=== PATIENT | male | born 1960 | race Caucasian/White ===

== ENCOUNTER 2017-07-17 11:17 | Inpatient (IN) | payer OTHER ==
[2017-07-17 11:44] VITALS: BMI 24.2
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
[2017-07-17] MEDS ORDERED: LOPERAMIDE HCL 2 MG CAPSULE PO PRN (12:21)
[2017-07-17] MEDS ORDERED: chlordiazePOXIDE HCL 25 MG CAPSULE PO PRN (12:21)
[2017-07-17] MEDS ORDERED: IBUPROFEN 400 MG TABLET (FP) PO PRN (12:21)
[2017-07-17] MEDS ORDERED: ACETAMINOPHEN 325 MG TABLET (FP) PO PRN (12:21)
[2017-07-17] MEDS ORDERED: MAGNESIUM CITRATE 300 ML BOTTLE PO PRN (12:21)
[2017-07-17] MEDS ORDERED: MAG HYDROX/AL HYDROX/SIMETH 30 ML UNIT-DOSE CUP PO PRN (12:21)
[2017-07-17] MEDS ORDERED: MAGNESIUM HYDROX 2400MG/30ML ORAL SUSPENSION 30 ML CUP PO PRN (12:21)
[2017-07-17] MEDS ORDERED: guaiFENesin/D-METHORPHAN HB 10 ML UNIT-DOSE CUPS PO PRN (12:21)
[2017-07-17] MEDS ORDERED: hydrOXYzine PAMOATE 25 MG CAPSULE (FP) PO PRN (12:21)
[2017-07-17] MEDS ORDERED: MENTHOL/PHENOL 1 EACH UD MM PRN (12:21)
[2017-07-17] MEDS ORDERED: P-EPHED 60MG/TRIPROLIDI 2.5MG TABLET PO PRN (12:21)
[2017-07-17] MEDS ORDERED: ALBUTEROL SO4 18 GM HFA INHALER IH PRN (12:24)
[2017-07-17] MEDS ORDERED: chlordiazePOXIDE HCL 25 MG CAPSULE PO ONE (12:45)
[2017-07-17] MEDS ORDERED: METHADONE HCL 10 MG TABLET (FOR DETOX USE ONLY) PO ONE ×2 (12:45→23:00)
[2017-07-17] MEDS: chlordiazePOXIDE HCL 25 MG CAPSULE PO SCH ×2 (17:23→22:06)
[2017-07-17 18:55] LABS: URINE APPEARANCE CLEAR; URINE BILIRUBIN NEGATIVE (NEGATIVE); URINE BLOOD NEGATIVE (NEGATIVE); URINE COLOR LTYELLOW; URINE GLUCOSE (UA) NEGATIVE (NEGATIVE); URINE KETONE NEGATIVE (NEGATIVE); URINE LEUK ESTERASE NEGATIVE (NEGATIVE); URINE NITRITE NEGATIVE (NEGATIVE); URINE PROTEIN NEGATIVE (NEGATIVE); URINE UROBILINOGEN NEGATIVE mg/dL (0.2-1.0)
[2017-07-17] MEDS: THIAMINE HCL 100 MG TABLET (FP) PO SCH (22:05)
[2017-07-17] MEDS: RALTEGRAVIR POTASSIUM 400 MG TAB PO SCH (22:05)
--- NOTE | 2017-07-17 22:47 | EKG ---
Test Reason : Blood Pressure : / mmHG Vent. Rate : 058 BPM Atrial Rate : 058 BPM P-R Int : 182 ms QRS Dur : 090 ms QT Int : 410 ms P-R-T Axes : 051 089 050 degrees QTc Int : 402 ms SINUS BRADYCARDIA OTHERWISE NORMAL ECG NO PREVIOUS ECGS AVAILABLE Confirmed by MD BURT, TOPHER ([id number]) on 07/17/2017 10:47:26 PM Referred By: Confirmed By:TOPHER DALLAS MD
[2017-07-18] MEDS: chlordiazePOXIDE HCL 25 MG CAPSULE PO SCH ×4 (06:12→22:31)
[2017-07-18 09:52] LABS: HEMATOCRIT 38.8 % (35.4-49); HEMOGLOBIN 12.5 GM/dL (11.7-16.9); MCH 30.3 pg (25.7-33.7); MCHC 32.3 g/dl (32.0-35.9); MEAN CELL VOLUME 93.9 fl (80-96); MEAN PLT VOLUME 9.3 fl (7.5-11.1); PLATELET COUNT 136 K/MM3 (134-434); RBC 4.14 M/mm3 (4.00-5.60); RDW 14.4 % (11.9-15.9)
[2017-07-18] MEDS ORDERED: METHADONE HCL 10 MG TABLET (FOR DETOX USE ONLY) PO SCH (10:00)
[2017-07-18 10:02] LABS: ANION GAP 4 (8-16); BILIRUBIN,TOTAL 0.4 mg/dL (0.2-1.0); BLOOD UREA NITROGEN 10 mg/dL (7-18); CALCIUM 8.2 mg/dL (8.5-10.1); CHLORIDE 107 mmol/L (98-107); CO2 31 mmol/L (21-32); CREATININE 0.9 mg/dL (0.7-1.3); GLUCOSE,RANDOM 82 mg/dL (74-106); POTASSIUM 3.9 mmol/L (3.5-5.1); SGOT/AST 38 U/L (15-37); SGPT/ALT 29 U/L (12-78); SODIUM 142 mmol/L (136-145); TOT PROT 6.9 g/dl (6.4-8.2)
[2017-07-18 10:03] LABS: ALK PHOS 134 U/L (45-117)
[2017-07-18] MEDS: PRENATAL VITAMINS W/ FOLIC ACID TABLET (FP) PO SCH (10:40)
[2017-07-18] MEDS: EMTRICITABINE/TENOFOV ALAFENAM (DESCOVY) TABLET PO SCH (10:40)
[2017-07-18] MEDS: RALTEGRAVIR POTASSIUM 400 MG TAB PO SCH ×2 (10:40→22:30)
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
--- NOTE | 2017-07-18 11:47 | PN ---
[facility] CIWA - CIWA Score Nausea/Vomitin-No Nausea/No Vomiting Muscle Tremors: 3 Anxiety: 3 Agitation: 2 Paroxysmal Sweats: 1-Minimal Palms Moist Orientation: 0-Oriented Tacttile Disturbances: 0-None Auditory Disturbances: 0-None Visual Disturbances: 0-None Headache: 0-None Present CIWA-Ar Total Score: 9 BHS COWS - Scale Resting Pulse: 0= TN 80 or Below Sweatin= Chills/Flushing Restless Observation: 1= Difficult to Sit Still Pupil Size: 1= Pupils >than Normal Bone or Joint Aches: 1= Mild Discomfort Runny Nose/ Eye Tearin= Nasal Congestion GI Upset > 30mins: 1= Stomach Cramp Tremor Observation of Outstretched Hands: 1= Tremor [place], Not Seen Yawning Observation: 0= None Anxiety or Irritability: 2=Irritable/Anxious Goose Flesh Skin: 0=Smooth Skin COWS Score: 9 S Progress Note (SOAP) Subjective: joint ache sweat tremor restlessness anxiety Objective: 07/18/17 11:49 Vital Signs Temperature 97.9 F 07/18/17 10:00 Pulse Rate 67 07/18/17 10:00 Respiratory Rate 18 07/18/17 10:00 Blood Pressure 110/57 07/18/17 10:00 O2 Sat by Pulse Oximetry (%) Laboratory Last Values WBC 4.0 K/mm3 (4.0-10.0) 07/18/17 07:20 RBC 4.14 M/mm3 (4.00-5.60) 07/18/17 07:20 Hgb 12.5 GM/dL (11.7-16.9) 07/18/17 07:20 Hct 38.8 % (35.4-49) 07/18/17 07:20 MCV 93.9 fl (80-96) 07/18/17 07:20 MCH 30.3 pg (25.7-33.7) 07/18/17 07:20 MCHC 32.3 g/dl (32.0-35.9) 07/18/17 07:20 RDW 14.4 % (11.9-15.9) 07/18/17 07:20 Plt Count 136 K/MM3 (134-434) 07/18/17 07:20 MPV 9.3 fl (7.5-11.1) 07/18/17 07:20 Sodium 142 mmol/L (136-145) 07/18/17 07:20 Potassium 3.9 mmol/L (3.5-5.1) 07/18/17 07:20 Chloride 107 mmol/L (98-107) 07/18/17 07:20 Carbon Dioxide 31 mmol/L (21-32) 07/18/17 07:20 Anion Gap 4 (8-16) L 07/18/17 07:20 BUN 10 mg/dL (7-18) 07/18/17 07:20 Creatinine 0.9 mg/dL (0.7-1.3) 07/18/17 07:20 Creat Clearance w eGFR > 60 (>60) 07/18/17 07:20 Random Glucose 82 mg/dL (74-106) 07/18/17 07:20 Calcium 8.2 mg/dL (8.5-10.1) L 07/18/17 07:20 Total Bilirubin 0.4 mg/dL (0.2-1.0) 07/18/17 07:20 AST 38 U/L (15-37) H 07/18/17 07:20 ALT 29 U/L (12-78) 07/18/17 07:20 Alkaline Phosphatase 134 U/L (45-117) H 07/18/17 07:20 Total Protein 6.9 g/dl (6.4-8.2) 07/18/17 07:20 Albumin 3.0 g/dl (3.4-5.0) L 07/18/17 07:20 Urine Color Ltyellow 07/17/17 13:36 Urine Appearance Clear 07/17/17 13:36 Urine pH 5.0 (5.0-8.0) 07/17/17 13:36 Ur Specific [place] 1.015 (1.001-1.035) 07/17/17 13:36 Urine Protein Negative (NEGATIVE) 07/17/17 13:36 Urine Glucose (UA) Negative (NEGATIVE) 07/17/17 13:36 Urine Ketones Negative (NEGATIVE) 07/17/17 13:36 Urine Blood Negative (NEGATIVE) 07/17/17 13:36 Urine Nitrite Negative (NEGATIVE) 07/17/17 13:36 Urine Bilirubin Negative (NEGATIVE) 07/17/17 13:36 Urine Urobilinogen Negative mg/dL (0.2-1.0) 07/17/17 13:36 Ur Leukocyte Esterase Negative (NEGATIVE) 07/17/17 13:36 RPR Titer Nonreactive (NONREACTIVE) 07/18/17 07:20 lab noted Assessment: 07/18/17 11:49 withdrawal sx Plan: continue detox
[2017-07-18] MEDS: SERTRALINE HCL 50 MG TABLET (FP) PO SCH (12:33)
[2017-07-18] MEDS: THIAMINE HCL 100 MG TABLET (FP) PO SCH (22:30)
[2017-07-18] MEDS: QUEtiapine FUMARATE 100 MG TABLET (FP) PO SCH (22:30)
[2017-07-19] MEDS: chlordiazePOXIDE HCL 25 MG CAPSULE PO SCH ×2 (07:18→11:04)
[2017-07-19] MEDS: EMTRICITABINE/TENOFOV ALAFENAM (DESCOVY) TABLET PO SCH (10:05)
[2017-07-19] MEDS: PRENATAL VITAMINS W/ FOLIC ACID TABLET (FP) PO SCH (10:05)
[2017-07-19] MEDS: RALTEGRAVIR POTASSIUM 400 MG TAB PO SCH ×2 (10:06→22:03)
[2017-07-19] MEDS: SERTRALINE HCL 50 MG TABLET (FP) PO SCH (10:06)
[2017-07-19] MEDS: METHADONE HCL 5 MG TABLET (FOR DETOX USE ONLY) PO SCH (10:06)
--- NOTE | 2017-07-19 11:31 | PN ---
[facility] CIWA - CIWA Score Nausea/Vomitin Muscle Tremors: 3 Anxiety: 3 Agitation: 2 Paroxysmal Sweats: 1-Minimal Palms Moist Orientation: 0-Oriented Tacttile Disturbances: 1-Very Mild Itch/Numbness Auditory Disturbances: 1-Very Mild Visual Disturbances: 0-None Headache: 2-Mild CIWA-Ar Total Score: 16 BHS COWS - Scale Resting Pulse: 0= [place] 80 or Below Sweatin= Chills/Flushing Restless Observation: 3= Extraneous Movement Pupil Size: 1= Pupils >than Normal Bone or Joint Aches: 2= Severe Diffuse Aches Runny Nose/ Eye Tearin= Runny Nose/Eyes GI Upset > 30mins: 2= Nausea/Diarrhea Tremor Observation of Outstretched Hands: 2= Slight Tremor Visible Yawning Observation: 1= 1-2x During Session Anxiety or Irritability: 2=Irritable/Anxious Goose Flesh Skin: 0=Smooth Skin COWS Score: 16 [facility] Progress Note (SOAP) Subjective: ALERT,IRRITABLE,ANXIOUS,INTERRUPTED SLEEP,PAIN IN THE BODY AND BACK Objective: Vital Signs Temperature 98.1 F 07/19/17 11:08 Pulse Rate 76 07/19/17 11:08 Respiratory Rate 16 07/19/17 11:08 Blood Pressure 114/67 07/19/17 11:08 O2 Sat by Pulse Oximetry (%) EKG SINUS BRADYCARDIA 58/MIN, PROLONG QTNO CHEST PAIN,NO SOB,NO DIZZINESS Laboratory Last Values WBC 4.0 K/mm3 (4.0-10.0) 07/18/17 07:20 RBC 4.14 M/mm3 (4.00-5.60) 07/18/17 07:20 Hgb 12.5 GM/dL (11.7-16.9) 07/18/17 07:20 Hct 38.8 % (35.4-49) 07/18/17 07:20 MCV 93.9 fl (80-96) 07/18/17 07:20 MCH 30.3 pg (25.7-33.7) 07/18/17 07:20 MCHC 32.3 g/dl (32.0-35.9) 07/18/17 07:20 RDW 14.4 % (11.9-15.9) 07/18/17 07:20 Plt Count 136 K/MM3 (134-434) 07/18/17 07:20 MPV 9.3 fl (7.5-11.1) 07/18/17 07:20 Sodium 142 mmol/L (136-145) 07/18/17 07:20 Potassium 3.9 mmol/L (3.5-5.1) 07/18/17 07:20 Chloride 107 mmol/L (98-107) 07/18/17 07:20 Carbon Dioxide 31 mmol/L (21-32) 07/18/17 07:20 Anion Gap 4 (8-16) L 07/18/17 07:20 BUN 10 mg/dL (7-18) 07/18/17 07:20 Creatinine 0.9 mg/dL (0.7-1.3) 07/18/17 07:20 Creat Clearance w eGFR > 60 (>60) 07/18/17 07:20 Random Glucose 82 mg/dL (74-106) 07/18/17 07:20 Calcium 8.2 mg/dL (8.5-10.1) L 07/18/17 07:20 Total Bilirubin 0.4 mg/dL (0.2-1.0) 07/18/17 07:20 AST 38 U/L (15-37) H 07/18/17 07:20 ALT 29 U/L (12-78) 07/18/17 07:20 Alkaline Phosphatase 134 U/L (45-117) H 07/18/17 07:20 Total Protein 6.9 g/dl (6.4-8.2) 07/18/17 07:20 Albumin 3.0 g/dl (3.4-5.0) L 07/18/17 07:20 Urine Color Ltyellow 07/17/17 13:36 Urine Appearance Clear 07/17/17 13:36 Urine pH 5.0 (5.0-8.0) 07/17/17 13:36 Ur Specific [place] 1.015 (1.001-1.035) 07/17/17 13:36 Urine Protein Negative (NEGATIVE) 07/17/17 13:36 Urine Glucose (UA) Negative (NEGATIVE) 07/17/17 13:36 Urine Ketones Negative (NEGATIVE) 07/17/17 13:36 Urine Blood Negative (NEGATIVE) 07/17/17 13:36 Urine Nitrite Negative (NEGATIVE) 07/17/17 13:36 Urine Bilirubin Negative (NEGATIVE) 07/17/17 13:36 Urine Urobilinogen Negative mg/dL (0.2-1.0) 07/17/17 13:36 Ur Leukocyte Esterase Negative (NEGATIVE) 07/17/17 13:36 RPR Titer Nonreactive (NONREACTIVE) 07/18/17 07:20 Assessment: 07/19/17 11:31 WITHDRAWAL SYMPTOM Plan: CONTINUE DETOX,ENCOURAGE ORAL FLUID,ENSURE PLUS 120 MLS PO BID, BLOOD FOR AMMONIA LEVEL IN AM
[2017-07-19] MEDS: chlordiazePOXIDE 5 MG CAPSULE PO SCH ×2 (18:24→22:03)
[2017-07-19] MEDS: QUEtiapine FUMARATE 100 MG TABLET (FP) PO SCH (22:03)
[2017-07-19] MEDS: THIAMINE HCL 100 MG TABLET (FP) PO SCH (22:03)
[2017-07-20] MEDS: chlordiazePOXIDE 5 MG CAPSULE PO SCH ×2 (07:33→10:08)
[2017-07-20] MEDS: EMTRICITABINE/TENOFOV ALAFENAM (DESCOVY) TABLET PO SCH (10:08)
[2017-07-20] MEDS: PRENATAL VITAMINS W/ FOLIC ACID TABLET (FP) PO SCH (10:08)
[2017-07-20] MEDS: METHADONE HCL 5 MG TABLET (FOR DETOX USE ONLY) PO SCH (10:08)
[2017-07-20] MEDS: SERTRALINE HCL 50 MG TABLET (FP) PO SCH (10:08)
[2017-07-20] MEDS: RALTEGRAVIR POTASSIUM 400 MG TAB PO SCH ×2 (10:08→22:11)
--- NOTE | 2017-07-20 10:35 | PN ---
[facility] CIWA - CIWA Score Nausea/Vomitin Muscle Tremors: 3 Anxiety: 3 Agitation: 3 Paroxysmal Sweats: 1-Minimal Palms Moist Orientation: 0-Oriented Tacttile Disturbances: 1-Very Mild Itch/Numbness Auditory Disturbances: 1-Very Mild Visual Disturbances: 0-None Headache: 2-Mild CIWA-Ar Total Score: 17 BHS COWS - Scale Resting Pulse: 1= [place] 81-100 Sweatin= Chills/Flushing Restless Observation: 3= Extraneous Movement Pupil Size: 1= Pupils >than Normal Bone or Joint Aches: 2= Severe Diffuse Aches Runny Nose/ Eye Tearin= Runny Nose/Eyes GI Upset > 30mins: 2= Nausea/Diarrhea Tremor Observation of Outstretched Hands: 2= Slight Tremor Visible Yawning Observation: 1= 1-2x During Session Anxiety or Irritability: 2=Irritable/Anxious Goose Flesh Skin: 0=Smooth Skin COWS Score: 17 [facility] Progress Note (SOAP) Subjective: ALERT,IRRITABLE,ANXIOUS,INTERRUPTED SLEEP,PAIN IN THE BODY,TREMOR Objective: 07/20/17 10:31 Vital Signs Temperature 97.9 F 07/20/17 09:59 Pulse Rate 82 07/20/17 09:59 Respiratory Rate 16 07/20/17 09:59 Blood Pressure 126/51 07/20/17 09:59 O2 Sat by Pulse Oximetry (%) Laboratory Last Values WBC 4.0 K/mm3 (4.0-10.0) 07/18/17 07:20 RBC 4.14 M/mm3 (4.00-5.60) 07/18/17 07:20 Hgb 12.5 GM/dL (11.7-16.9) 07/18/17 07:20 Hct 38.8 % (35.4-49) 07/18/17 07:20 MCV 93.9 fl (80-96) 07/18/17 07:20 MCH 30.3 pg (25.7-33.7) 07/18/17 07:20 MCHC 32.3 g/dl (32.0-35.9) 07/18/17 07:20 RDW 14.4 % (11.9-15.9) 07/18/17 07:20 Plt Count 136 K/MM3 (134-434) 07/18/17 07:20 MPV 9.3 fl (7.5-11.1) 07/18/17 07:20 Sodium 142 mmol/L (136-145) 07/18/17 07:20 Potassium 3.9 mmol/L (3.5-5.1) 07/18/17 07:20 Chloride 107 mmol/L (98-107) 07/18/17 07:20 Carbon Dioxide 31 mmol/L (21-32) 07/18/17 07:20 Anion Gap 4 (8-16) L 07/18/17 07:20 BUN 10 mg/dL (7-18) 07/18/17 07:20 Creatinine 0.9 mg/dL (0.7-1.3) 07/18/17 07:20 Creat Clearance w eGFR > 60 (>60) 07/18/17 07:20 Random Glucose 82 mg/dL (74-106) 07/18/17 07:20 Calcium 8.2 mg/dL (8.5-10.1) L 07/18/17 07:20 Total Bilirubin 0.4 mg/dL (0.2-1.0) 07/18/17 07:20 AST 38 U/L (15-37) H 07/18/17 07:20 ALT 29 U/L (12-78) 07/18/17 07:20 Alkaline Phosphatase 134 U/L (45-117) H 07/18/17 07:20 Ammonia 39.11 umol/L (11-32) H 07/20/17 07:30 Total Protein 6.9 g/dl (6.4-8.2) 07/18/17 07:20 Albumin 3.0 g/dl (3.4-5.0) L 07/18/17 07:20 Urine Color Ltyellow 07/17/17 13:36 Urine Appearance Clear 07/17/17 13:36 Urine pH 5.0 (5.0-8.0) 07/17/17 13:36 Ur Specific [place] 1.015 (1.001-1.035) 07/17/17 13:36 Urine Protein Negative (NEGATIVE) 07/17/17 13:36 Urine Glucose (UA) Negative (NEGATIVE) 07/17/17 13:36 Urine Ketones Negative (NEGATIVE) 07/17/17 13:36 Urine Blood Negative (NEGATIVE) 07/17/17 13:36 Urine Nitrite Negative (NEGATIVE) 07/17/17 13:36 Urine Bilirubin Negative (NEGATIVE) 07/17/17 13:36 Urine Urobilinogen Negative mg/dL (0.2-1.0) 07/17/17 13:36 Ur Leukocyte Esterase Negative (NEGATIVE) 07/17/17 13:36 RPR Titer Nonreactive (NONREACTIVE) 07/18/17 07:20 AMMONIA LEVEL IS 39.11 07/20/17 10:35 EKG SINUS BRDYCARDIA RATE 58/MIN NO CHEST PAIN,NO SOB,NO DIZZINESS Laboratory Last Values WBC 4.0 K/mm3 (4.0-10.0) 07/18/17 07:20 RBC 4.14 M/mm3 (4.00-5.60) 07/18/17 07:20 Hgb 12.5 GM/dL (11.7-16.9) 07/18/17 07:20 Hct 38.8 % (35.4-49) 07/18/17 07:20 MCV 93.9 fl (80-96) 07/18/17 07:20 MCH 30.3 pg (25.7-33.7) 07/18/17 07:20 MCHC 32.3 g/dl (32.0-35.9) 07/18/17 07:20 RDW 14.4 % (11.9-15.9) 07/18/17 07:20 Plt Count 136 K/MM3 (134-434) 07/18/17 07:20 MPV 9.3 fl (7.5-11.1) 07/18/17 07:20 Sodium 142 mmol/L (136-145) 07/18/17 07:20 Potassium 3.9 mmol/L (3.5-5.1) 07/18/17 07:20 Chloride 107 mmol/L (98-107) 07/18/17 07:20 Carbon Dioxide 31 mmol/L (21-32) 07/18/17 07:20 Anion Gap 4 (8-16) L 07/18/17 07:20 BUN 10 mg/dL (7-18) 07/18/17 07:20 Creatinine 0.9 mg/dL (0.7-1.3) 07/18/17 07:20 Creat Clearance w eGFR > 60 (>60) 07/18/17 07:20 Random Glucose 82 mg/dL (74-106) 07/18/17 07:20 Calcium 8.2 mg/dL (8.5-10.1) L 07/18/17 07:20 Total Bilirubin 0.4 mg/dL (0.2-1.0) 07/18/17 07:20 AST 38 U/L (15-37) H 07/18/17 07:20 ALT 29 U/L (12-78) 07/18/17 07:20 Alkaline Phosphatase 134 U/L (45-117) H 07/18/17 07:20 Ammonia 39.11 umol/L (11-32) H 07/20/17 07:30 Total Protein 6.9 g/dl (6.4-8.2) 07/18/17 07:20 Albumin 3.0 g/dl (3.4-5.0) L 07/18/17 07:20 Urine Color Ltyellow 07/17/17 13:36 Urine Appearance Clear 07/17/17 13:36 Urine pH 5.0 (5.0-8.0) 07/17/17 13:36 Ur Specific [place] 1.015 (1.001-1.035) 07/17/17 13:36 Urine Protein Negative (NEGATIVE) 07/17/17 13:36 Urine Glucose (UA) Negative (NEGATIVE) 07/17/17 13:36 Urine Ketones Negative (NEGATIVE) 07/17/17 13:36 Urine Blood Negative (NEGATIVE) 07/17/17 13:36 Urine Nitrite Negative (NEGATIVE) 07/17/17 13:36 Urine Bilirubin Negative (NEGATIVE) 07/17/17 13:36 Urine Urobilinogen Negative mg/dL (0.2-1.0) 07/17/17 13:36 Ur Leukocyte Esterase Negative (NEGATIVE) 07/17/17 13:36 RPR Titer Nonreactive (NONREACTIVE) 07/18/17 07:20 Assessment: 07/20/17 10:33 WITHDRAWAL SYMPTOM Plan: CONTINUE DETOX,LACTULOSE 20 GRAMS PO BID,AMMONIA IS 39.9
[2017-07-20] MEDS: LACTULOSE 20 GM/30 ML UDC (FOR ORAL USE ONLY) PO SCH ×2 (10:43→22:11)
[2017-07-20] MEDS: chlordiazePOXIDE HCL 10 MG CAPSULE PO SCH ×2 (18:05→22:11)
[2017-07-20] MEDS: QUEtiapine FUMARATE 100 MG TABLET (FP) PO SCH (22:11)
[2017-07-20] MEDS: THIAMINE HCL 100 MG TABLET (FP) PO SCH (22:11)
[2017-07-21] MEDS: chlordiazePOXIDE HCL 10 MG CAPSULE PO SCH ×2 (05:50→10:08)
[2017-07-21] MEDS ORDERED: METHADONE HCL 10 MG TABLET (FOR DETOX USE ONLY) PO SCH (10:00)
[2017-07-21] MEDS: RALTEGRAVIR POTASSIUM 400 MG TAB PO SCH ×2 (10:10→22:07)
[2017-07-21] MEDS: LACTULOSE 20 GM/30 ML UDC (FOR ORAL USE ONLY) PO SCH ×2 (10:10→22:07)
[2017-07-21] MEDS: PRENATAL VITAMINS W/ FOLIC ACID TABLET (FP) PO SCH (10:10)
[2017-07-21] MEDS: EMTRICITABINE/TENOFOV ALAFENAM (DESCOVY) TABLET PO SCH (10:10)
[2017-07-21] MEDS: SERTRALINE HCL 50 MG TABLET (FP) PO SCH (10:10)
--- NOTE | 2017-07-21 11:06 | PN ---
S Progress Note (SOAP) Subjective: ALERT,INTERRUPTED SLEEP Objective: 07/21/17 11:04 Vital Signs Temperature 97.9 F 07/21/17 09:52 Pulse Rate 79 07/21/17 09:52 Respiratory Rate 18 07/21/17 09:52 Blood Pressure 109/69 07/21/17 09:52 O2 Sat by Pulse Oximetry (%) Assessment: 07/21/17 11:04 WITHDRAWAL SYMPTOM Plan: CONTINUE DETOX,DISCHARGE IN AM,ON LACTULOSE 20 GRAMS PO BID FOR ELEVATION OF AMMONIA LEVEL
[2017-07-21] MEDS: THIAMINE HCL 100 MG TABLET (FP) PO SCH (22:07)
[2017-07-21] MEDS: QUEtiapine FUMARATE 100 MG TABLET (FP) PO SCH (22:07)
[2017-07-22] MEDS ORDERED: METHADONE HCL 5 MG TABLET (FOR DETOX USE ONLY) PO SCH (06:00)
--- NOTE | 2017-07-22 08:13 | DS ---
[facility] Detox Discharge Summary Admission Date: 07/17/17 Discharge Date: 07/22/17 - History Present History: Alcohol Dependence, Cannabis Dependence, Cocaine Dependence, Opioid Dependence Additional Comments: follow up with after care program as arrangement Pertinent Past History: asthma hepatitis c hiv schizophrenia - Physical Exam Results Vital Signs: Vital Signs Temperature 97.9 F 07/22/17 06:00 Pulse Rate 94 H 07/22/17 06:00 Respiratory Rate 18 07/22/17 06:00 Blood Pressure 113/72 07/22/17 06:00 O2 Sat by Pulse Oximetry (%) Pertinent Admission Physical Exam Findings: withdrawal symptom and finding - Treatment Hospital Course: Detox Protocol Followed, Detoxed Safely, Responded well, Discharged Condition Good, Rehab Referral Accepted Patient has Accepted [facility] Referral [facility] - Medication Discharge Medications: Ambulatory Orders Albuterol Sulfate Inhaler - [Ventolin Hfa Inhaler -] 2 inh PO Q4H PRN 07/17/17 Emtricitabine/Tenofov Alafenam [Descovy 200-25 mg Tablet (Nf)] 1 each PO DAILY 07/17/17 Raltegravir [Isentress -] 400 mg PO BID 07/17/17 Hydroxyzine Pamoate 25 mg PO TID PRN #90 capsule 07/18/17 Quetiapine Fumarate [Seroquel] 100 mg PO HS #30 tablet 07/18/17 Sertraline HCl [Zoloft -] 50 mg PO DAILY #30 tablet 07/18/17 - Diagnosis (1) Opioid dependence with withdrawal Current Visit: Yes Status: Acute (2) Alcohol dependence with uncomplicated withdrawal Current Visit: Yes Status: Acute (3) Asthma Current Visit: Yes Status: Acute Qualifiers: Asthma severity: mild Asthma persistence: intermittent Asthma complication type: uncomplicated Qualified Code(s): J45.20 - Mild intermittent asthma, uncomplicated (4) Cannabis dependence Current Visit: Yes Status: Acute (5) Cocaine dependence Current Visit: Yes Status: Acute Qualifiers: Substance use status: in withdrawal Qualified Code(s): F14.23 - Cocaine dependence with withdrawal (6) HIV (human immunodeficiency virus infection) Current Visit: Yes Status: Chronic (7) Hepatitis C Current Visit: Yes Status: Chronic Qualifiers: Viral hepatitis chronicity: chronic Hepatic coma status: without hepatic coma Qualified Code(s): B18.2 - Chronic viral hepatitis C (8) Nicotine dependence Current Visit: Yes Status: Chronic (9) Substance-induced sleep disorder Current Visit: Yes Status: Acute (10) Schizophrenia Current Visit: Yes Status: Chronic (11) Increased ammonia level Current Visit: Yes Status: Acute - AMA Did Patient Leave Against Medical Advice: No
[2017-07-22 09:26] VITALS: BP 123/80; PULSE 71; TEMP 98.7
[2017-07-22] MEDS: RALTEGRAVIR POTASSIUM 400 MG TAB PO SCH (10:44)
[2017-07-22] MEDS: PRENATAL VITAMINS W/ FOLIC ACID TABLET (FP) PO SCH (10:44)
[2017-07-22] MEDS: EMTRICITABINE/TENOFOV ALAFENAM (DESCOVY) TABLET PO SCH (10:44)
[2017-07-22] MEDS: SERTRALINE HCL 50 MG TABLET (FP) PO SCH (10:44)
[2017-07-22] MEDS: LACTULOSE 20 GM/30 ML UDC (FOR ORAL USE ONLY) PO SCH (10:44)
== END 2017-07-22 14:01 | disposition home or self-care (01) | DRG 773 ==
LOC: YASAS 11:17 → Y6N 12:14
PROVIDERS: ADMIT Internal Medicine; ATTEND Internal Medicine
PROC: HZ2ZZZZ Detoxification Services for Substance Abuse Treatment (ICD-10-PCS; principal; 2017-07-17)
DX: F11.23 Opioid dependence with withdrawal (principal); F10.230 Alcohol dependence with withdrawal, uncomplicated; F14.20 Cocaine dependence, uncomplicated; F12.20 Cannabis dependence, uncomplicated; F17.210 Nicotine dependence, cigarettes, uncomplicated; F19.282 Other psychoactive substance dependence with psychoactive substance-induced sleep disorder; F20.0 Paranoid schizophrenia; Z21 Asymptomatic human immunodeficiency virus [HIV] infection status; J45.20 Mild intermittent asthma, uncomplicated; B18.2 Chronic viral hepatitis C; E72.20 Disorder of urea cycle metabolism, unspecified; Z87.438 Personal history of other diseases of male genital organs; Z91.5 Personal history of self-harm
CPT/HCPCS: 36415; 80053; 81003; 82140; 85027; 86593; 93005; 93010

== ENCOUNTER 2017-07-22 14:28 | Inpatient (IN) | payer OTHER ==
[2017-07-22] MEDS ORDERED: hydrOXYzine PAMOATE 25 MG CAPSULE (FP) PO PRN (14:50)
--- NOTE | 2017-07-22 15:22 | HP ---
[facility] Assess/Revision - Admission History Admitted to Rehab from: [facility] Date of Admission to Rehab: 07/22/17 - Vital signs Vital Signs: Vital Signs Period Temp Pulse Resp BP Sys/Degroot Pulse Ox Last 24 Hr 98.5 F 80 18 137/80 - Findings Detox History & Physical reviewed: Yes Concur with findings: Yes Comments/Additional Findings: for rehab as protocol Inpatient Rehab Admission - Initial Determination Are CD services needed?: Yes Free of communicable disease: Yes Not in need of hospitalization: Yes - Rehab Admission Criteria Previous failed treatment: Yes Poor recovery environment: Yes Comorbidities: Yes Lacks judgement: No Patient is meeting Inpatient Rehab admission criteria:: Yes
[2017-07-22] MEDS ORDERED: MENTHOL/PHENOL 1 EACH UD MM PRN (15:24)
[2017-07-22] MEDS ORDERED: guaiFENesin/D-METHORPHAN HB 10 ML UNIT-DOSE CUPS PO PRN (15:24)
[2017-07-22] MEDS ORDERED: P-EPHED 60MG/TRIPROLIDI 2.5MG TABLET PO PRN (15:24)
[2017-07-22] MEDS ORDERED: ACETAMINOPHEN 325 MG TABLET (FP) PO PRN (15:24)
[2017-07-22] MEDS ORDERED: IBUPROFEN 400 MG TABLET (FP) PO PRN (15:24)
[2017-07-22] MEDS ORDERED: MAGNESIUM HYDROX 2400MG/30ML ORAL SUSPENSION 30 ML CUP PO PRN (15:24)
[2017-07-22] MEDS ORDERED: MAGNESIUM CITRATE 300 ML BOTTLE PO PRN (15:24)
[2017-07-22] MEDS ORDERED: LOPERAMIDE HCL 2 MG CAPSULE PO PRN (15:24)
[2017-07-22] MEDS: RALTEGRAVIR POTASSIUM 400 MG TAB PO SCH (21:41)
[2017-07-22] MEDS: THIAMINE HCL 100 MG TABLET (FP) PO SCH (21:41)
[2017-07-22] MEDS: QUEtiapine FUMARATE 100 MG TABLET (FP) PO SCH (21:41)
[2017-07-22] MEDS: LACTULOSE 20 GM/30 ML UDC (FOR ORAL USE ONLY) PO SCH (21:41)
[2017-07-23] MEDS: SERTRALINE HCL 50 MG TABLET (FP) PO SCH (10:26)
[2017-07-23] MEDS: RALTEGRAVIR POTASSIUM 400 MG TAB PO SCH ×2 (10:26→22:03)
[2017-07-23] MEDS: LACTULOSE 20 GM/30 ML UDC (FOR ORAL USE ONLY) PO SCH ×2 (10:26→22:03)
[2017-07-23] MEDS: PRENATAL VITAMINS W/ FOLIC ACID TABLET (FP) PO SCH (10:27)
[2017-07-23] MEDS: EMTRICITABINE/TENOFOV ALAFENAM (DESCOVY) TABLET PO SCH (10:28)
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
[2017-07-23] MEDS: THIAMINE HCL 100 MG TABLET (FP) PO SCH (22:03)
[2017-07-23] MEDS: QUEtiapine FUMARATE 100 MG TABLET (FP) PO SCH (22:03)
[2017-07-23] MEDS: MAG HYDROX/AL HYDROX/SIMETH 30 ML UNIT-DOSE CUP PO PRN (23:51)
[2017-07-24] MEDS: PRENATAL VITAMINS W/ FOLIC ACID TABLET (FP) PO SCH (10:52)
[2017-07-24] MEDS: SERTRALINE HCL 50 MG TABLET (FP) PO SCH (10:52)
[2017-07-24] MEDS: LACTULOSE 20 GM/30 ML UDC (FOR ORAL USE ONLY) PO SCH ×2 (10:52→23:13)
[2017-07-24] MEDS: RALTEGRAVIR POTASSIUM 400 MG TAB PO SCH ×2 (10:52→23:13)
[2017-07-24] MEDS: EMTRICITABINE/TENOFOV ALAFENAM (DESCOVY) TABLET PO SCH (10:52)
[2017-07-24] MEDS: MAG HYDROX/AL HYDROX/SIMETH 30 ML UNIT-DOSE CUP PO PRN (19:46)
--- NOTE | 2017-07-24 20:55 | PN ---
[facility] Progress Note Note: Patient was seen and examined at bedside with complaint of right lower quadrant abdominal pain, nausea, vomiting and hiccup. Patient states that he has intermittent abdominal pain at his right side for 3 days but the pain has become unbearable . He has guarding behavior and would not allow adequate abdominal examination. He states that he was told by his primary physician prior to admission that he has cirrhosis of the liver. Vital signs: B/P 131/77, HR 90, RR 18, T98.6F. Patient is to be transferred to ER for evaluation. Endorsed to Dr. Zelaya.
[2017-07-24] MEDS: THIAMINE HCL 100 MG TABLET (FP) PO SCH (23:13)
[2017-07-24] MEDS: QUEtiapine FUMARATE 100 MG TABLET (FP) PO SCH (23:13)
[2017-07-25] MEDS: SERTRALINE HCL 50 MG TABLET (FP) PO SCH (10:39)
[2017-07-25] MEDS: RALTEGRAVIR POTASSIUM 400 MG TAB PO SCH ×2 (10:39→21:43)
[2017-07-25] MEDS: LACTULOSE 20 GM/30 ML UDC (FOR ORAL USE ONLY) PO SCH ×2 (10:39→21:43)
[2017-07-25] MEDS: PRENATAL VITAMINS W/ FOLIC ACID TABLET (FP) PO SCH (10:40)
[2017-07-25] MEDS: EMTRICITABINE/TENOFOV ALAFENAM (DESCOVY) TABLET PO SCH (10:40)
[2017-07-25] MEDS: ALBUTEROL SO4 18 GM HFA INHALER IH PRN ×2 (12:38→20:43)
[2017-07-25] MEDS: THIAMINE HCL 100 MG TABLET (FP) PO SCH (21:43)
[2017-07-25] MEDS: QUEtiapine FUMARATE 100 MG TABLET (FP) PO SCH (21:43)
[2017-07-26 07:11] VITALS: BP 115/85; PULSE 75; TEMP 97.9
[2017-07-26] MEDS: PRENATAL VITAMINS W/ FOLIC ACID TABLET (FP) PO SCH (10:35)
[2017-07-26] MEDS: SERTRALINE HCL 50 MG TABLET (FP) PO SCH (10:35)
[2017-07-26] MEDS: EMTRICITABINE/TENOFOV ALAFENAM (DESCOVY) TABLET PO SCH (10:35)
[2017-07-26] MEDS: LACTULOSE 20 GM/30 ML UDC (FOR ORAL USE ONLY) PO SCH (10:37)
[2017-07-26] MEDS: RALTEGRAVIR POTASSIUM 400 MG TAB PO SCH (11:00)
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
== END 2017-07-26 11:15 | disposition left against medical advice (07) | DRG 770 ==
LOC: YASAS 14:28 → Y5N 14:30
PROVIDERS: ADMIT Psychiatry & Neurology Psychiatry; ATTEND Psychiatry & Neurology Psychiatry
PROC: HZ42ZZZ Group Counseling for Substance Abuse Treatment, Cognitive-Behavioral (ICD-10-PCS; principal; 2017-07-22)
DX: F11.20 Opioid dependence, uncomplicated (principal); F14.20 Cocaine dependence, uncomplicated; F12.20 Cannabis dependence, uncomplicated; F17.210 Nicotine dependence, cigarettes, uncomplicated; F20.9 Schizophrenia, unspecified; F19.282 Other psychoactive substance dependence with psychoactive substance-induced sleep disorder; Z21 Asymptomatic human immunodeficiency virus [HIV] infection status; B18.2 Chronic viral hepatitis C; J45.909 Unspecified asthma, uncomplicated; Z87.438 Personal history of other diseases of male genital organs; R10.13 Epigastric pain; R11.2 Nausea with vomiting, unspecified; R06.6 Hiccough; R79.89 Other specified abnormal findings of blood chemistry

== ENCOUNTER 2017-07-24 21:49 | Emergency (ER) | payer OTHER ==
[2017-07-24 21:57] VITALS: BP 124/74; PULSE 83; TEMP 98.3; BMI 24.2
[2017-07-24] MEDS ORDERED: SODIUM CHLORIDE 1,000 ML IV STA (22:05)
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
[2017-07-24 22:18] LABS: BASO % 0.1 % (0-2.0); EOS % 0.6 % (0-4.5); HEMATOCRIT 36.8 % (35.4-49); HEMOGLOBIN 12.7 GM/dL (11.7-16.9); LYMPH % 15.3 % (8-40); MCH 31.5 pg (25.7-33.7); MCHC 34.6 g/dl (32.0-35.9); MEAN CELL VOLUME 91.2 fl (80-96); MEAN PLT VOLUME 8.8 fl (7.5-11.1); MONO % 6.5 % (3.8-10.2); NEUT % 77.5 % (42.8-82.8); PLATELET COUNT 150 K/MM3 (134-434); RBC 4.04 M/mm3 (4.00-5.60); RDW 14.2 % (11.9-15.9); WHITE BLOOD COUNT 8.2 K/mm3 (4.0-10.0)
[2017-07-24 22:48] LABS: ALBUMIN 3.3 g/dl (3.4-5.0); ALK PHOS 132 U/L (45-117); ANION GAP 7 (8-16); BILIRUBIN,TOTAL 0.5 mg/dL (0.2-1.0); BLOOD UREA NITROGEN 10 mg/dL (7-18); CALCIUM 8.5 mg/dL (8.5-10.1); CHLORIDE 98 mmol/L (98-107); CO2 29 mmol/L (21-32); CREATININE 0.8 mg/dL (0.7-1.3); GLUCOSE,RANDOM 178 mg/dL (74-106); POTASSIUM 4.1 mmol/L (3.5-5.1); SGOT/AST 40 U/L (15-37); SGPT/ALT 32 U/L (12-78); SODIUM 134 mmol/L (136-145); TOT PROT 8.1 g/dl (6.4-8.2)
[2017-07-24 23:17] LABS: URINE APPEARANCE CLEAR; URINE BILIRUBIN NEGATIVE (NEGATIVE); URINE BLOOD NEGATIVE (NEGATIVE); URINE COLOR LTYELLOW; URINE GLUCOSE (UA) NEGATIVE (NEGATIVE); URINE KETONE NEGATIVE (NEGATIVE); URINE LEUK ESTERASE NEGATIVE (NEGATIVE); URINE NITRITE NEGATIVE (NEGATIVE); URINE PROTEIN NEGATIVE (NEGATIVE); URINE UROBILINOGEN NEGATIVE mg/dL (0.2-1.0)
== END 2017-07-25 04:16 | disposition other institution (70) ==
LOC: JER 21:49
PROC: 3E0337Z Introduction of Electrolytic and Water Balance Substance into Peripheral Vein, Percutaneous Approach (ICD-10-PCS; principal; 2017-07-24)
DX: K44.9 Diaphragmatic hernia without obstruction or gangrene (principal); R10.31 Right lower quadrant pain
CPT/HCPCS: 36415; 74177-TC; 80053; 81003; 85025; 99282-25